=== PATIENT | female | born 1975 | race Caucasian/White ===

== ENCOUNTER 2017-10-03 15:16 | Outpatient (CLI) | payer OTHER ==
--- NOTE | 2017-10-03 16:24 | ULT ---
ULTRASOUND SOFT TISSUES: Date: 10/03/17 HISTORY: Left supraclavicular swelling. COMPARISON: None. FINDINGS: There is no abnormal in the supraclavicular area on the ultrasound. There is a mildly prominent lymph node adjacent to a vessel. IMPRESSION: No abnormal mass. MRI recommended for further characterization. POS: [facility]
== END 2017-10-03 15:17 | disposition home or self-care (01) ==
LOC: SCSULT 15:16
PROVIDERS: ATTEND Nurse Practitioner Family
DX: R22.2 Localized swelling, mass and lump, trunk (principal)